=== PATIENT | female | born 1970 | race American Indian/Alaskan Native ===

== ENCOUNTER 2019-05-08 19:49 | Emergency (ER) | payer SELFPAY ==
[2019-05-08] MEDS ORDERED: traMADol HCl 50 MG TAB ONE (20:26)
--- NOTE | 2019-05-08 20:49 | RAD ---
FOUR VIEWS RIGHT KNEE: 05/08/19 HISTORY: Fall. Pain. FINDINGS/IMPRESSION: Joint spaces are preserved. No evidence of fracture or malalignment. There is a significant suprapate llar effusion. If there is concern for internal derangement or ligamentous injury, consider MRI. MRI can also assess for possible bone contusion or edema. If there is still concern for fracture, CT can be performed. POS: PPP
== END 2019-05-08 21:25 | disposition home or self-care (01) ==
LOC: NAV ERS 19:49
DX: S83.411A Sprain of medial collateral ligament of right knee, initial encounter (principal); F17.210 Nicotine dependence, cigarettes, uncomplicated; W10.9XXA Fall (on) (from) unspecified stairs and steps, initial encounter

== ENCOUNTER 2019-09-18 20:07 | Emergency (ER) | payer SELFPAY ==
[2019-09-18] MEDS ORDERED: diphenhydrAMINE 50 MG/ML VIAL ONE (20:35)
[2019-09-18] MEDS ORDERED: methylPREDNISolone Sod Succ/PF 125 MG/2 ML VIAL ONE (20:35)
[2019-09-18] MEDS ORDERED: Famotidine/PF 20 mg/2ml Vial ONE (20:35)
[2019-09-18] MEDS ORDERED: Ondansetron PF 4 MG/2 ML Vial ONE (20:35)
[2019-09-18] MEDS ORDERED: Sodium Chloride 0.9% 1,000 ML ONE (20:35)
[2019-09-18 20:59] LABS: ALT (SGPT) 13 U/L (8-55); AST (SGOT) 16 U/L (5-34); Albumin 4.2 g/dL (3.5-5.0); Alkaline Phosphatase 77 U/L (40-110); Anion Gap 20 mmol/L (10-20); BUN (Urea Nitrogen) 15 mg/dL (7.0-18.7); Bilirubin, Total 0.9 mg/dL (0.2-1.2); Calc. Creatinine Clearance 0 mL/min (70-130); Calcium 9.2 mg/dL (7.8-10.44); Carbon Dioxide 22 mmol/L (22-29); Chloride 100 mmol/L (98-107); Estimated GFR-MDRD 70; Globulin 2.9 g/dL (2.4-3.5); Glucose 165 mg/dL (70-105); Lipase 19 U/L (8-78); Potassium 4.2 mmol/L (3.5-5.1); Protein, Total 7.1 g/dL (6.0-8.3); Sodium 138 mmol/L (136-145)
[2019-09-18 21:02] LABS: #Monocytes 0.3 thou/uL (0.11-0.59); #Neutrophils 13.9 thou/uL (1.40-6.50); %Basophils 0.2 % (0.0-1.0); %Lymphocytes 6.7 % (21.0-51.0); %Monocytes 2.1 % (0.0-10.0); Hemoglobin 16.6 g/dL (12.0-16.0); Mean Corpuscular HGB CONC 32.1 g/dL (32.0-36.0); Mean Corpuscular Hemoglobin 29.3 pg (27.0-31.0); Mean Corpuscular Volume 91.3 fL (78.0-98.0); Mean Platelet Volume 8.3 fL (7.4-10.4); Platelet Count 335 thou/uL (130-400); RBC Distribution Width 12.6 % (11.5-14.5); Red Blood Cell (RBC) Count 5.67 mill/uL (4.20-5.40); White Blood Cell (WBC) Count 15.3 thou/uL (4.8-10.8)
[2019-09-18] MEDS ORDERED: Acetaminophen 325 MG TAB ONE (21:31)
--- NOTE | 2019-09-18 21:55 | RAD ---
XR Chest 1 View Portable History: Fever Comparison: None. Findings: Exam is limited due to underpenetration. Within this limitation the lungs are clear. No pne umothorax. No effusion. Cardiac silhouette and mediastinal contours appear within normal limits. No acute osseous abnormality. Impression: No acute intrathoracic abnormality.
[2019-09-18 22:15] LABS: Bilirubin Negative (Negative); Blood, Urine Moderate (Negative); Clarity Clear (Clear); Glucose, Urine (Dipstick) Negative (Negative); Leukocyte Moderate (Negative); Nitrite Positive (Negative); Protein, Urine (Dipstick) 30 mg/dL (Neg-Trace)
[2019-09-18 22:23] LABS: Bacteria/HPF 3+ HPF (None Seen)
[2019-09-18] MEDS ORDERED: Cephalexin 250 MG CAP ONE (22:53)
== END 2019-09-18 23:02 | disposition home or self-care (01) ==
LOC: NAV ERS 20:07
DX: D72.829 Elevated white blood cell count, unspecified (principal); N39.0 Urinary tract infection, site not specified; L50.9 Urticaria, unspecified; R11.2 Nausea with vomiting, unspecified; F17.210 Nicotine dependence, cigarettes, uncomplicated; Z79.899 Other long term (current) drug therapy
CPT/HCPCS: 71045; 80053; 81003; 81015; 83690; 85025; 87077; 87081; 87086; 87186; 87430; 87804; 94760; 96361; 96374; 96375; J1200; J2405; J2930; J7050; S0028

== ENCOUNTER 2021-12-05 17:48 | Emergency (ER) | payer BC, SELFPAY ==
[2021-12-05 18:31] LABS: #Basophils 0.1 thou/uL (0.0-0.2); #Lymphocytes 1.4 thou/uL (1.20-3.40); #Monocytes 0.5 thou/uL (0.11-0.59); #Neutrophils 15.1 thou/uL (1.40-6.50); %Basophils 0.5 % (0.0-1.0); %Lymphocytes 7.9 % (21.0-51.0); %Monocytes 3.1 % (0.0-10.0); %Neutrophils 88.5 % (42.0-75.0); Hemoglobin 14.6 g/dL (12.0-16.0); Mean Corpuscular HGB CONC 31.3 g/dL (32.0-36.0); Mean Corpuscular Hemoglobin 29.9 pg (27.0-31.0); Mean Corpuscular Volume 95.4 fL (78.0-98.0); Mean Platelet Volume 7.9 fL (7.4-10.4); Platelet Count 279 thou/uL (130-400); RBC Distribution Width 13.4 % (11.5-14.5); Red Blood Cell (RBC) Count 4.88 mill/uL (4.20-5.40); White Blood Cell (WBC) Count 17.1 thou/uL (4.8-10.8)
[2021-12-05 18:42] LABS: ALT (SGPT) 14 U/L (8-55); AST (SGOT) 11 U/L (5-34); Albumin 4.2 g/dL (3.5-5.0); Alkaline Phosphatase 65 U/L (40-110); Anion Gap 21 mmol/L (10-20); BUN (Urea Nitrogen) 6 mg/dL (7.0-18.7); Bilirubin, Total 0.6 mg/dL (0.2-1.2); Calc. Creatinine Clearance 0 mL/min (70-130); Calcium 9.2 mg/dL (7.8-10.44); Carbon Dioxide 15 mmol/L (22-29); Chloride 107 mmol/L (98-107); Globulin 2.9 g/dL (2.4-3.5); Glucose 141 mg/dL (70-105); Lipase 8 U/L (8-78); Potassium 3.6 mmol/L (3.5-5.1); Protein, Total 7.1 g/dL (6.0-8.3); Sodium 139 mmol/L (136-145)
[2021-12-05] MEDS ORDERED: Ondansetron PF 4 MG/2 ML Vial ONE ×2 (18:43→20:06)
[2021-12-05] MEDS ORDERED: Sodium Chloride 0.9% 1,000 ML ONE (18:43)
[2021-12-05] MEDS ORDERED: Dicyclomine 20 MG/2 ML VIAL ONE (19:19)
== END 2021-12-05 20:33 | disposition home or self-care (01) ==
LOC: NAV ERS 17:48
DX: R11.2 Nausea with vomiting, unspecified (principal); F17.210 Nicotine dependence, cigarettes, uncomplicated
CPT/HCPCS: 74022; 80053; 83690; 85025; 96361; 96372; 96374; 96376; J0500; J2405; J7050